=== PATIENT | male | born 1980 | race Caucasian/White ===

== ENCOUNTER 2017-01-05 22:51 | Emergency (ER) | payer BC ==
[2017-01-05] MEDS ORDERED: Ketorolac 60 MG/2 ML SDV IVPUSH ONE (23:20)
[2017-01-05] MEDS ORDERED: Ondansetron 4 MG/2 ML SDV IVPUSH ONE (23:20)
[2017-01-05] MEDS ORDERED: Sodium Chloride 0.9% 1,000 ML IV SCH (23:30)
[2017-01-06] MEDS ORDERED: Dexamethasone 4 MG/ML SDV IVPUSH ONE (00:39)
[2017-01-06] MEDS ORDERED: levETIRAcetam 500 MG in Sodium Chloride 0.9% 100 ML IV ONE (00:40)
--- NOTE | 2017-01-06 00:54 | EDM.PDOC ---
ED HPI HEADACHE COMPLAINT - General Chief Complaint: Headache Stated Complaint: VOMITING/HEADACHE Time Seen by Provider: 01/05/17 23:03 Source: Reports: Patient History Limitations: Reports: No limitations - History of Present Illness INITIAL COMMENTS - FREE TEXT/NARRATIVE: History of present illness: [36-year-old male presenting with a headache nausea and vomiting. He had a headache about a week ago that resolved. He does have a history of headaches. He's had no prior head CT. 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 His fiance is with him this evening.] Review of systems: As per history of present illness and below otherwise all systems reviewed and negative. Past medical history: As per history of present illness and as reviewed below otherwise noncontributory. Surgical history: As per history of present illness and as reviewed below otherwise noncontributory. Social history: No reported history of drug or alcohol abuse. Family history: As per history of present illness and as reviewed below otherwise noncontributory. Physical exam: HEENT: Atraumatic, normocephalic, pupils reactive at 3 mm extraocular movements are intact, negative for conjunctival pallor or scleral icterus, mucous membranes moist, throat clear, neck supple, nontender, trachea midline. Lungs: Clear to auscultation, breath sounds equal bilaterally, chest nontender. Heart: S1S2, regular, negative for clicks, rubs, or JVD. Abdomen: Soft, nondistended, nontender. Negative for masses or hepatosplenomegaly. Negative for costovertebral tenderness. Pelvis: Stable nontender. Genitourinary: Deferred. Rectal: Deferred. Extremities: Atraumatic, negative for cords or calf pain. Neurovascular unremarkable. Neuro: Awake, alert, oriented. Cranial nerves II through XII unremarkable. Cerebellum unremarkable. Motor and sensory unremarkable throughout. Exam nonfocal. Diagnostics: [Head CT is showing an ill-defined mass in the inferior right frontal lobe] Therapeutics: [He's getting 10 mg of Decadron and 500 mg of Keppra] Impression: [Intracranial mass] Plan: [I spoke with Dr. Alvarez the neurosurgeon compression molding machine operator at [facility] and we are making arrangements for him to be transferred there for definitive care. He will be going by [facility].] Definitive disposition and diagnosis as appropriate pending reevaluation and review of above. - Related Data Allergies/ADRs: Allergies Allergy/AdvReac Type Severity Reaction Status Date / Time No Known Allergies Allergy Verified 01/05/17 23:05 Home Meds: Home Meds NK [No Known Home Meds] 01/05/17 [History] Past Medical History HEENT History: Reports: Impaired vision Neurological History: Reports: Concussion Psychiatric History: Reports: Anxiety, Dementia Hematologic History: Reports: Blood transfusion(s) - Infectious Disease History Infectious Disease History: Reports: Chicken pox - Past Surgical History Musculoskeletal Surgical History: Reports: Amputation Other Musculoskeletal Surgeries/Procedures:: BK l foot Hand l surgery Social & Family History - Tobacco Use Smoking Status *Q: Never Smoker Second Hand Smoke Exposure: No - Caffeine Use Caffeine Use: Reports: Coffee, Tea - Alcohol Use Days Per Week of Alcohol Use: 1 Number of Drinks Per Day: 1 Total Drinks Per Week: 1 - Recreational Drug Use Recreational Drug Use: No ED ROS GENERAL - Review of Systems Review Of Systems: ROS reveals no pertinent complaints other than HPI. - Physical Exam Exam: See Below Course - Vital Signs Last Recorded V/S: Last Vital Signs Temp 37.1 C 01/05/17 23:12 Pulse 70 01/05/17 23:12 Resp 16 01/05/17 23:12 BP 131/73 01/05/17 23:12 Pulse Ox 95 01/05/17 23:12 - Orders/Labs/Meds Orders: Active Orders 24 hr Category Date Time Status Head wo Cont [CT] Stat Exams 01/05/17 23:19 Taken Sodium Chloride 0.9% [Normal Saline] 1,000 ml Med 01/05/17 23:30 Active IV ASDIRECTED levETIRAcetam [Keppra] 500 mg Med 01/06/17 00:40 Ordered Sodium Chloride 0.9% [Normal Saline] 100 ml IV ONETIME Medication Orders Sodium Chloride (Normal Saline) 1,000 mls @ 500 mls/hr IV ASDIRECTED ALEX Last Admin: 01/05/17 23:38 Dose: 500 mls/hr Levetiracetam 500 mg/ Sodium (Chloride) 105 mls @ 400 mls/hr IV ONETIME ONE Stop: 01/06/17 00:54 Meds: Medications Generic Name Dose Route Start Last Admin Trade Name Freq PRN Reason Stop Dose Admin Sodium Chloride 1,000 mls @ 500 mls/hr 01/05/17 23:30 01/05/17 23:38 Normal Saline IV 500 mls/hr ASDIRECTED ALEX Administration Levetiracetam 500 mg/ Sodium 105 mls @ 400 mls/hr 01/06/17 00:40 Chloride IV 01/06/17 00:54 ONETIME ONE Discontinued Medications Generic Name Dose Route Start Last Admin Trade Name Brandon PRN Reason Stop Dose Admin Dexamethasone 10 mg 01/06/17 00:39 Dexamethasone IVPUSH 01/06/17 00:40 ONETIME ONE Ketorolac Tromethamine 15 mg 01/05/17 23:20 01/05/17 23:40 Toradol IVPUSH 01/05/17 23:21 15 mg ONETIME ONE Administration Ondansetron HCl 4 mg 01/05/17 23:20 01/05/17 23:42 Zofran IVPUSH 01/05/17 23:21 4 mg ONETIME ONE Administration Departure - Departure Time of Disposition: 00:54 Disposition: DC/Tfer to Acute Hospital 02 Condition: fair Clinical Impression: Intracranial mass Forms: ED Department Discharge - My Orders Last 24 Hours: My Active Orders 01/05/17 23:19 Head wo Cont [CT] Stat 01/05/17 23:30 Sodium Chloride 0.9% [Normal Saline] 1,000 ml IV ASDIRECTED 01/06/17 00:40 levETIRAcetam [Keppra] 500 mg Sodium Chloride 0.9% [Normal Saline] 100 ml IV ONETIME - Assessment/Plan Last 24 Hours: My Active Orders 01/05/17 23:19 Head wo Cont [CT] Stat 01/05/17 23:30 Sodium Chloride 0.9% [Normal Saline] 1,000 ml IV ASDIRECTED 01/06/17 00:40 levETIRAcetam [Keppra] 500 mg Sodium Chloride 0.9% [Normal Saline] 100 ml IV ONETIME
[2017-01-06 01:04] VITALS: BP 122/70
== END 2017-01-06 01:20 ==
LOC: JP.ED 22:51
DX: R90.0 Intracranial space-occupying lesion found on diagnostic imaging of central nervous system (principal); Z89.9 Acquired absence of limb, unspecified; Z98.890 Other specified postprocedural states
CPT/HCPCS: 70450; 96361; 96374; 96375; 99285; J1100; J1885; J1953; J2405; J7030; J7040

== ENCOUNTER 2017-05-08 20:08 | Emergency (ER) | payer BC ==
[2017-05-08 21:02] VITALS: BP 155/80
--- NOTE | 2017-05-08 22:37 | EDM.PDOC ---
ED HPI GENERAL MEDICAL PROBLEM - General Chief Complaint: Neurological Problem Stated Complaint: seizures Time Seen by Provider: 05/08/17 22:22 Source of Information: Reports: Patient, Family (spouse) History Limitations: Reports: No Limitations - History of Present Illness INITIAL COMMENTS - FREE TEXT/NARRATIVE: With 3 episodes today of seizure like activity, lip smacking, eye twitching, cheek twitching. Had brain surgery in February. 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 Just finished week 5. On new chemo x 6 weeks. Has been doctoring at [facility] with radiation oncology and medical oncology. Dr Kevin at [phone]. Pt currently denies nausea or headache. Denies visual changes. Last CBC reviewed from his chart this week. Onset: Today Onset Date: 05/08/17 Onset Time: 15:00 Duration: Intermittent, Improving Location: Reports: Face Severity: Mild Improves with: Reports: None Worsens with: Reports: None Context: Reports: Other (?if from radiation) Associated Symptoms: Reports: No Other Symptoms denies pain Pain Score (Numeric/FACES): 0 - Related Data Allergies Allergy/AdvReac Type Severity Reaction Status Date / Time dexamethasone [From Decadron] Allergy Rash Verified 05/08/17 21:41 Home Meds: Home Meds Ondansetron [Zofran] 8 mg PO BEDTIME 05/08/17 [History] Polyethylene Glycol 3350 [MiraLAX] 17 gm PO DAILY 05/08/17 [History] Sennosides/Docusate Sodium [Senna Laxative Tablet] 1 each PO BEDTIME 05/08/17 [ History] Sulfamethoxazole/Trimethoprim [Bactrim 400-80 MG] 1 each PO BEDTIME 05/08/17 [ History] Temozolomide [Temodar] 5 mg PO BEDTIME 05/08/17 [History] Temozolomide [Temodar] 140 mg PO BEDTIME 05/08/17 [History] levETIRAcetam [Keppra] 500 mg PO BID 05/08/17 [History] Past Medical History HEENT History: Reports: Impaired Vision Cardiovascular History: Reports: None Respiratory History: Reports: None Gastrointestinal History: Reports: None Genitourinary History: Reports: None Musculoskeletal History: Reports: None Neurological History: Reports: Concussion, Seizure, Other (See Below) Other Neuro History: seizure on right side of face along with lip smaking Psychiatric History: Reports: Anxiety, Dementia Endocrine/Metabolic History: Reports: None Hematologic History: Reports: Blood Transfusion(s) Immunologic History: Reports: None Oncologic (Cancer) History: Reports: Brain Dermatologic History: Reports: None - Infectious Disease History Infectious Disease History: Reports: Chicken Pox - Past Surgical History Head Surgeries/Procedures: Reports: Craniotomy HEENT Surgical History: Reports: None Cardiovascular Surgical History: Reports: None Respiratory Surgical History: Reports: None GI Surgical History: Reports: None Endocrine Surgical History: Reports: None Neurological Surgical History: Reports: None Musculoskeletal Surgical History: Reports: Amputation, Other (See Below) Other Musculoskeletal Surgeries/Procedures:: BK l foot Hand l surgery Dermatological Surgical History: Reports: None Social & Family History - Tobacco Use Smoking Status *Q: Never Smoker Second Hand Smoke Exposure: No - Caffeine Use Caffeine Use: Reports: Coffee - Alcohol Use Days Per Week of Alcohol Use: 1 Number of Drinks Per Day: 1 Total Drinks Per Week: 1 - Recreational Drug Use Recreational Drug Use: No ED ROS GENERAL - Review of Systems Review Of Systems: See Below Constitutional: Reports: No Symptoms HEENT: Reports: No Symptoms Respiratory: Reports: No Symptoms Cardiovascular: Reports: No Symptoms Endocrine: Reports: No Symptoms Neurological: Reports: Seizure (like activity, see HPI), Tingling Psychiatric: Reports: No Symptoms - Physical Exam Exam: See Below Exam Limited By: No Limitations General Appearance: Alert, WD/WN, No Apparent Distress Ears: Normal External Exam, Normal Canal, Hearing Grossly Normal, Normal TMs Nose: Normal Inspection, Normal Mucosa, No Blood Throat/Mouth: Normal Inspection, Normal Lips, Normal Teeth, Normal Gums, Normal Oropharynx, Normal Voice, No Airway Compromise Head Exam: Other (traumatic scar present) Neck: Normal Inspection, Supple, Non-Tender, Full Range of Motion Respiratory/Chest: No Respiratory Distress, Lungs Clear, Normal Breath Sounds, No Accessory Muscle Use, Chest Non-Tender Cardiovascular: Normal Peripheral Pulses, Regular Rate, Rhythm, No Edema, No Gallop, No JVD, No Murmur, No Rub GI/Abdominal: Normal Bowel Sounds, Soft, Non-Tender, No Organomegaly, No Distention, No Abnormal Bruit, No Mass Neuro Exam (Abbreviated): Alert, Oriented, CN II-XII Intact, Normal Cognition, Normal Gait, Normal Reflexes, No Motor/Sensory Deficits Extremities: Normal Inspection, Normal Range of Motion, Non-Tender, No Pedal Edema, Normal Capillary Refill Psychiatric: Normal Affect, Normal Mood Skin Exam: Warm, Dry, Intact, Normal Color, No Rash Course - Vital Signs Last Recorded V/S: Last Vital Signs Temp 98.4 F 05/08/17 21:01 Pulse 115 H 05/08/17 21:01 Resp 18 05/08/17 21:01 BP 155/80 H 05/08/17 21:01 Pulse Ox 93 L 05/08/17 21:01 - Orders/Labs/Meds Labs: Laboratory Tests 05/08/17 Range/Units 23:03 Sodium 140 (140-148) mmol/L Potassium 3.9 (3.6-5.2) mmol/L Chloride 103 (100-108) mmol/L Carbon Dioxide 26 (21-32) mmol/L Anion Gap 11.1 (5.0-14.0) mmol/L Departure - Departure Time of Disposition: 23:19 Disposition: Home, Self-Care 01 Condition: Good Clinical Impression: Seizure disorder - Discharge Information Referrals: Sultana Barraza MD [Primary Care Provider] - Forms: ED Department Discharge Additional Instructions: Electrolytes normal. Pt to add a Keppra level to his labs on Wednesday. Discussed with patient expectations of radiation side effect. Pt will continue to document frequency of these events and report to his oncologist. Pt and spouse voice understanding. - Problem List & Annotations (1) Seizure disorder SNOMED Code(s): 129571826 Code(s): G40.909 - EPILEPSY, UNSP, NOT INTRACTABLE, WITHOUT STATUS EPILEPTICUS Status: Acute Priority: Low Current Visit: Yes
== END 2017-05-08 23:34 | disposition home or self-care (01) ==
LOC: JP.ED 20:08
DX: G40.901 Epilepsy, unspecified, not intractable, with status epilepticus (principal); F41.9 Anxiety disorder, unspecified; Z79.899 Other long term (current) drug therapy; Z98.890 Other specified postprocedural states
CPT/HCPCS: 36415; 80051; 99284